=== PATIENT | female | born 1980 | race Caucasian/White ===

== ENCOUNTER → 2017-08-03 11:58 | Outpatient (CLI) | payer MEDICAID, SELFPAY ==
[2017-08-03 13:02] LABS: Hemoglobin A1c 12.3 % (4.2-6.3)
[2017-08-03 13:23] LABS: AST(SGOT) 12 U/L (15-37); Alanine Aminotransfer ALT/SGPT 25 U/L (13-56); Albumin, Serum 3.9 g/dL (3.2-5.0); Alkaline Phosphatase 139 U/L (45-117); Anion Gap 10 (5-15); BUN 7 mg/dL (7-18); BUN/Creat Ratio 13.7 RATIO (10-20); Calcium,Total 8.7 mg/dL (8.5-10.1); Chloride 98 mmol/L (98-107); Creatinine, Serum 0.51 mg/dL (0.55-1.02); EST Glomerular Filtration Rate 142 mL/min (>60); Est Glom Filt Rate - Afr Amer 172 mL/min (>60); Follicle Stimulating Hormone 4.7 mIU/mL; Glucose 304 mg/dL (74-106); Luteinizing Hormone 8.6 mIU/mL; Potassium 3.9 mmol/L (3.5-5.1); Protein, Total 7.9 g/dL (6.4-8.2); Sodium Level 132 mmol/L (136-145); Thyroid Stim Hormone (TSH) 0.77 uIU/mL (0.358-3.74)
[2017-08-03 13:24] LABS: Microalbumin,Random Urine 26.4 mg/L (NO RANGE EST.); Microalbumin:Creatinine Ratio 174.8 mg/g CRE (<30 mg/g CRE)
== END ==
PROVIDERS: Visit Provider Nurse Practitioner
DX: E11.9 Type 2 diabetes mellitus without complications (principal)
CPT/HCPCS: 36415; 80053; 82043; 82570; 83001; 83002; 83036; 84403; 84443

== ENCOUNTER → 2018-01-27 15:23 | Outpatient (CLI) | payer MEDICAID, SELFPAY ==
[2018-02-03 08:55] LABS: HPV HC, High Risk Negative (Negative)
[2018-02-03 09:06] LABS: HPV Reflexed? YES, CHARGE PATIENT
== END ==
PROVIDERS: Visit Provider Obstetrics & Gynecology
DX: Z12.4 Encounter for screening for malignant neoplasm of cervix (principal)
CPT/HCPCS: 87624; 88175; G0145

== ENCOUNTER → 2022-11-11 | Outpatient (CLI) | payer MEDICAID, SELFPAY ==
[2022-11-11 16:13] LABS: Anion Gap 7 (5-15); BUN 30 mg/dL (7-18); BUN/Creat Ratio 39.1 RATIO (10-20); Calcium,Total 9.4 mg/dL (8.5-10.1); Chloride 105 mmol/L (98-107); Creatinine, Serum 0.77 mg/dL (0.55-1.02); EST Glomerular Filtration Rate 87 mL/min (>60); Est Glom Filt Rate - Afr Amer 105 mL/min (>60); Glucose 196 mg/dL (74-106); Magnesium 2.1 mg/dL (1.6-2.6); Potassium 4.9 mmol/L (3.5-5.1); Sodium Level 138 mmol/L (136-145)
[2022-11-11 16:16] LABS: Vitamin D,25 Hydroxy 28.5 ng/mL
[2022-11-11 16:35] LABS: Microalbumin,Random Urine 69.8 mg/L (NO RANGE EST.); Microalbumin:Creatinine Ratio 34.7 mg/g CRE (<30 mg/g CRE)
== END | disposition home or self-care (01) ==
LOC: BIMLAB 13:50
PROVIDERS: PCP Internal Medicine; Referring Provider Internal Medicine; Visit Provider Internal Medicine
DX: E11.65 Type 2 diabetes mellitus with hyperglycemia (principal); E55.9 Vitamin D deficiency, unspecified; I10 Essential (primary) hypertension
CPT/HCPCS: 36415; 80048; 82043; 82306; 82570; 83735

== ENCOUNTER → 2023-03-15 | Outpatient (CLI) | payer MEDICAID, SELFPAY ==
[2023-03-15 15:43] LABS: Absolute Lymphocyte Count 2.25 X10^3/uL (0.83-4.51); Absolute Neutrophil Count 8.5 X10^3/uL (2.0-7.7); Basophil# 0.08 X10^3/uL; Basophil% 0.7 % (0-1); Eosinophil# 0.45 X10^3/uL; Eosinophils% 3.7 % (0-5); Hematocrit 46.7 % (37-47); Lymphocyte # 2.25 X10^3/ul (0.83-4.51); Lymphocyte % 18.6 % (19-41); Mean Corp Hgb Conc 32.1 g/dL (32-36); Mean Corpuscular Hgb 29.5 pg (27.0-32.0); Mean Corpuscular Volume 91.7 fL (81-99); Mean Platelet Vol. 9.7 fl (6.2-12.0); Monocyte# 0.71 X10^3/uL; Monocyte% 5.9 % (0-10); NRBC Flagged by Analyzer 0 % (0-5); Neutrophil # 8.54 X10^3/uL (2.7-7.7); Neutrophil % 70.4 % (47-70); Platelet Count 532 K/mm3 (150-450); RBC Distribution Width CV 13.4 % (11.6-14.6); RBC Distribution Width SD 45.2 fl (35.1-43.9); Red Blood Count 5.09 M/mm3 (4.2-5.4); White Blood Count 12.1 K/mm3 (4.4-11.0)
[2023-03-15 16:09] LABS: ALB/GLOB Ratio 0.8 RATIO (0.9-2.4); AST(SGOT) 9 U/L (15-37); Alanine Aminotransfer ALT/SGPT 18 U/L (13-56); Albumin, Serum 3.6 g/dL (3.2-5.0); Alkaline Phosphatase 91 U/L (45-117); Anion Gap 10 (5-15); BUN 22 mg/dL (7-18); BUN/Creat Ratio 27.3 RATIO (10-20); Calcium,Total 9.1 mg/dL (8.5-10.1); Chloride 109 mmol/L (98-107); EST Glomerular Filtration Rate 82 mL/min (>60); Est Glom Filt Rate - Afr Amer 99 mL/min (>60); Globulin 4.4 g/dL (2.2-4.2); Glucose 239 mg/dL (74-106); Potassium 4.3 mmol/L (3.5-5.1); Sodium Level 138 mmol/L (136-145)
== END | disposition home or self-care (01) ==
LOC: BIMLAB 14:16
PROVIDERS: PCP Internal Medicine; Visit Provider Internal Medicine
DX: R29.898 Other symptoms and signs involving the musculoskeletal system (principal); E11.44 Type 2 diabetes mellitus with diabetic amyotrophy
CPT/HCPCS: 36415; 80053; 83735; 85025

== ENCOUNTER → 2023-03-23 | Outpatient (CLI) | payer MEDICAID, SELFPAY ==
--- NOTE | 2023-03-23 13:35 | BI_ITS ---
MAMMOGRAPHY - BILATERAL SCREENING REASON FOR EXAM: Female, 43 years old. Routine annual screening examination. PERTINENT HISTORY: Grandmother with breast cancer. Aunts with breast cancer. TECHNIQUE: Digital bilateral breast mulu (3D mammographic acquisition) in the CC and MLO projections. 2-D mediolateral oblique (MLO) and craniocaudad (CC) views of both breasts were obtained. CAD: Full Field Digital Mammography with Computer Added Detection was performed. COMPARISON: Comparison is made with prior abdomen examination dated October 23, 2020. FINDINGS: Breast Composition: There are scattered areas of fibroglandular density. There are no dominant masses or suspicious calcifications. Stable benign-appearing bilateral axillary lymph nodes. No other significant abnormalities are identified. There has been no significant change since the prior study. BI/SCRN MAMM (CAD)W/MULU BILAT IMPRESSION: Stable bilateral screening mammogram. Yearly follow-up mammogram recommended. (A) ASSESSMENT CATEGORY: BIRADS Category 2: Benign. A letter regarding these results will be sent to the patient by the facility within 30 days. Approximately 10% of breast cancers are not detected by mammography. A normal mammogram should not delay biopsy of a clinically suspicious abnormality. [id number] Electronically Signed: Gregory Grimes MD at 14:38 EDT ,
== END | disposition home or self-care (01) ==
LOC: OPBI 13:34
PROVIDERS: PCP Internal Medicine; Referring Provider Internal Medicine; Visit Provider Internal Medicine
DX: Z12.31 Encounter for screening mammogram for malignant neoplasm of breast (principal)
CPT/HCPCS: 77063; 77067

== ENCOUNTER → 2023-04-01 | Outpatient (CLI) | payer MEDICAID, SELFPAY ==
--- NOTE | 2023-04-01 08:02 | ART_ITS ---
Reason For Study: PVD Procedure A bilateral lower extremity continuous wave Doppler with analog waveform analysis,segmental pressures,and ankle brachial indexes without exercise. Left Segmental Pressures Left brachial= 139mmHg. Left thigh = 111mmHg. Left calf = 99mmHg. Left posterior tibial artery = 94mmHg. Left dorsalis pedis artery = 99mmHg. Left digit = 92 mmHg. The left posterior tibial artery waveforms are biphasic. The left dorsalis pedis waveforms are biphasic. Right Segmental Pressures Right brachial= 136mmHg. Right thigh = 89mmHg. Right calf = 90mmHg. Right posterior tibial artery = 91mmHg. Right dorsalis pedis artery = 90mmHg. Right digit = 88 mmHg. The right posterior tibial artery waveforms are biphasic. The right dorsalis pedis waveforms are biphasic. Indices The right ankle brachial index by the posterior tibial artery is 0.68. The right ankle brachial index by the dorsalis pedis is 0.71. The right digital-brachial index is 0.66. The left ankle brachial index by the posterior tibial artery is 0.65. The left ankle brachial index by the dorsalis pedis is 0.65. The left digital-brachial index is 0.63. VL/Lower Ext Art Exam w/o Exercis Interpretation Summary Right MARTA 0.71, moderate arterial insufficiency. Doppler/PVR waveforms and segm ental pressures reveal [id number]-[id number] femoral disease Left MARTA 0.65, moderate arterial insufficiency. Doppler/PVR waveforms and segme ntal pressures reveal [id number]-hyeuq-vwdwenfk femoral disease. Ordering Physician: Kassy Lauren Referring Physician: Zo Bell Performed By: Cooper Mclaughlin RVAnuradha
== END | disposition home or self-care (01) ==
LOC: CVS 08:01
PROVIDERS: PCP Internal Medicine; Referring Provider Physician Assistant; Visit Provider Physician Assistant
DX: I73.9 Peripheral vascular disease, unspecified (principal)
CPT/HCPCS: 93923

== ENCOUNTER → 2023-04-19 | Outpatient (CLI) | payer MEDICAID, SELFPAY ==
--- NOTE | 2023-04-19 12:07 | CT_ITS ---
EXAM: CT ANGIOGRAPHY ABDOMEN AND PELVIS WITH RUNOFF TO THE LOWER EXTREMITIES WITH INTRAVENOUS CONTRAST CLINICAL INDICATION: history of LLE revascularization, abnormal ABIs TECHNIQUE: Helically acquired angiography images were obtained of the abdomen, pelvis and lower extremities with intravenous contrast using CTA runoff protocol. This CT exam was performed using one or more of the following dose reduction techniques: automated exposure control, adjustment of the mA and/or kV according to patient size, and/or use of iterative reconstruction technique. MIP reconstructed images were created and reviewed. CONTRAST: 100 cc of Isovue-370 IV. RADIATION DOSE: CTDIvol = 8.94 mGy, DLP = 1481.55 mGy-cm COMPARISON: No relevant prior studies available. FINDINGS: VASCULATURE: AORTA: Diffuse atherosclerotic calcification of the left common artery with less than 50% diameter stenosis. Diffuse atherosclerotic calcifications of the aorta without stenosis or aneurysm. No dissection. CELIAC TRUNK AND MESENTERIC ARTERIES: No acute findings. No occlusion or significant stenosis. No dissection. RENAL ARTERIES: No acute findings. No occlusion or significant stenosis. No dissection. RIGHT ILIAC ARTERIES: Moderate diffuse atherosclerotic calcifications of the right external iliac artery with less than 50% diameter stenosis. Diffuse atherosclerotic calcification of the right common iliac artery without hemodynamically significant stenosis. RIGHT FEMORAL/POPLITEAL ARTERIES: Occluded right superficial femoral artery. Reconstitution of a stenotic right popliteal artery through collaterals. RIGHT CALF/FOOT ARTERIES: The proximal right calf arteries appear normal and the distal right calf arteries are not visualized probably due to slow flow. LEFT ILIAC ARTERIES: There is a stent that originates in the distal left common iliac artery. Within the stent in the proximal left external iliac artery there is a focal short segment stenosis greater than 50% in diameter. LEFT FEMORAL/POPLITEAL ARTERIES: Occlusion of the left superficial femoral artery. Reconstitution of the left popliteal artery through collaterals. LEFT CALF/FOOT ARTERIES: The proximal left calf arteries appear normal in the distal calf arteries are not visualized probably due to slow flow. LOWER THORAX: Unremarkable. Lung bases are clear. No cardiomegaly. No significant pericardial effusion. ABDOMEN: LIVER: Unremarkable. Homogeneous. No focal mass. GALLBLADDER AND BILE DUCTS: Unremarkable. No calcified gallstones. No gallbladder distention or wall edema. No intra- or extrahepatic biliary ductal dilation. PANCREAS: Unremarkable. No focal cystic or solid mass. SPLEEN: Unremarkable. Normal size without focal cystic or solid mass. ADRENALS: Unremarkable. No nodules. KIDNEYS AND URETERS: Unremarkable. Normal renal size and position. No hydronephrosis. STOMACH AND BOWEL: Unremarkable. No stomach or bowel distention. No focal inflammatory change. PELVIS: APPENDIX: No evidence of acute appendicitis. BLADDER: Unremarkable. REPRODUCTIVE: Unremarkable as visualized. No mass. ABDOMEN, PELVIS and LOWER EXTREMITIES: INTRAPERITONEAL SPACE: Unremarkable. No ascites or other fluid collection. No free air. BONES/JOINTS: Unremarkable. No suspicious lytic or blastic abnormality. SOFT TISSUES: Unremarkable. No discrete abdominal or pelvic wall hernia. LYMPH NODES: Unremarkable. No enlarged lymph nodes. CT/CTA Abd w/Runoff W/WO Contrast IMPRESSION: 1. Occlusion of the right superficial femoral artery. 2. Occlusion of the left superficial femoral artery. 3. Diffuse atherosclerotic calcification of the right common iliac artery without hemodynamically significant stenosis. 4. There is a stent that originates in the distal left common iliac artery. Within the stent in the proximal left external iliac artery there is a focal short segment stenosis greater than 50% in diameter. 5. Moderate diffuse atherosclerotic calcifications of the right external iliac artery with less than 50% diameter stenosis. 6. Diffuse atherosclerotic calcification of the left common artery with less than 50% diameter stenosis. 7. Reconstitution of a stenotic right popliteal artery through collaterals. 8. Reconstitution of the left popliteal artery through collaterals. 9. The proximal right calf arteries appear normal and the distal right calf arteries are not visualized probably due to slow flow. 10. The proximal left calf arteries appear normal in the distal calf arteries are not visualized probably due to slow flow. Electronically Signed: Tristian Wild MD at 6:57 EST ,
[2023-04-19 12:36] LABS: EGFR FINGERSTICK > 60.0000 mL/min (>60)
== END | disposition home or self-care (01) ==
LOC: CT 12:06
PROVIDERS: PCP Internal Medicine; Referring Provider Physician Assistant; Visit Provider Physician Assistant
DX: I73.9 Peripheral vascular disease, unspecified (principal)
CPT/HCPCS: 75635; Q9967

== ENCOUNTER → 2023-06-07 | Outpatient (CLI) | payer MEDICAID, SELFPAY ==
--- NOTE | 2023-06-07 14:02 | VDLE_ITS ---
Reason For Study: surgical planning RIGHT LEFT GSV prox thigh .31 x .32 cm. GSV prox thigh .42 x .46 cm. GSV mid thigh .21 x .22 cm. GSV mid thigh .4 x .46 cm. GSV dist thigh .17 x .17 cm. GSV dist thigh .32 x .34 cm. GSV knee .1 x .11 cm GSV knee .26 x .28 cm GSV below knee .09 x .11 cm. GSV below knee .21 x .26 cm. GSV mid calf .12 x .14 cm. GSV mid calf .12 x .13 cm. GSV ankle .16 x .18 cm GSV ankle . .24 x .23 cm SSV prox calf .11 x .13 cm. SSV prox calf .16 x .17 cm. SSV mid calf .13 x .17 cm. SSV mid calf .12 x .14 cm. SSV ankle .2 x .24 cm. SSV ankle .14 x .17 cm. Procedure Exam performed in department. The exam was diagnostic. VL/Saphenous Vein Mapping, Bilat Interpretation Summary Right great saphenous vein patent with measurements above. Left great saphenous vein patent with measurements above. Right small saphenous vein patent with measurements above. Left small saphenous vein patent with measurements above. Ordering Physician: Kassy Lauren Performed By: Domingo Little RVT
== END | disposition home or self-care (01) ==
LOC: CVS 14:01
PROVIDERS: PCP Internal Medicine; Referring Provider Physician Assistant; Visit Provider Physician Assistant
DX: I73.9 Peripheral vascular disease, unspecified (principal)
CPT/HCPCS: 93970

== ENCOUNTER 2023-06-09 06:46 | Day surgery (SDC) | payer MEDICAID, SELFPAY ==
[2023-06-08 15:09] VITALS: BMI 29.7
[2023-06-09 07:02] LABS: Hematocrit 45.9 % (37-47); Hemoglobin 14.9 g/dL (12.0-15.0); Mean Corp Hgb Conc 32.5 g/dL (32-36); Mean Corpuscular Hgb 29.1 pg (27.0-32.0); Mean Corpuscular Volume 89.6 fL (81-99); Mean Platelet Vol. 9.1 fl (6.2-12.0); Platelet Count 511 K/mm3 (150-450); RBC Distribution Width CV 13.1 % (11.6-14.6); RBC Distribution Width SD 42.8 fl (35.1-43.9); Red Blood Count 5.12 M/mm3 (4.2-5.4); White Blood Count 13.3 K/mm3 (4.4-11.0)
[2023-06-09 07:12] LABS: Internal QC Validated? YES +Cl - CLEAR BKGD; Pregnancy, Serum, hCG Quali. NEGATIVE Negative; Record Kit Lot#, Serum Preg. HCG0000667200
[2023-06-09 07:19] LABS: Anion Gap 7 (5-15); BUN 11 mg/dL (7-18); BUN/Creat Ratio 16.6 RATIO (10-20); Calcium,Total 9.4 mg/dL (8.5-10.1); Chloride 103 mmol/L (98-107); Creatinine, Serum 0.66 mg/dL (0.55-1.02); EST Glomerular Filtration Rate 103 mL/min (>60); Est Glom Filt Rate - Afr Amer 124 mL/min (>60); Estimated Creatinine Clearance 139.31 ml/min; Glucose 218 mg/dL (74-106); Potassium 4.2 mmol/L (3.5-5.1); Sodium Level 136 mmol/L (136-145)
--- NOTE | 2023-06-09 08:15 | HP.PCM_ITS ---
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 She had a CTA that revealed in sten t stenosis of left common and external iliac stents, right external iliac stenosis, bilateral SFA occlusions. She presents for angiogram with planned treated of in stent stenosis to preserve patency as well as effort to treat SFA/popliteal disease on the left. [facility] Medical History Diabetes type 2, controlled High cholesterol Hives HTN (hypertension) Neuropathy PTSD (post-traumatic stress disorder) Recurrent infections Home Medications blood sugar diagnostic (FreeStyle Lite Strips) #200 ea 09/15/17 [Rx Last Taken Unknown] insulin syringe,safetyneedle 1 mL 31 gauge x 5/16 (Easy Touch FlipLock Insulin) #100 ea 09/15/17 [Rx Last Taken Unknown] pen needle, diabetic 31 gauge x 5/16 (Comfort EZ Pen Holden) #30 ea 07/20/18 [Rx Last Taken Unknown] methocarbamol 500 mg tablet 500 mg PO ONCE 02/25/22 [History Last Taken Unknown] metformin 500 mg tablet,extended release 24 hr 1,000 mg (2 x 500 mg) PO BID #120 tabs 09/22/22 [Rx Last Taken Unknown] insulin detemir U-100 100 unit/mL (3 mL) subcutaneous pen (Levemir FlexTouch U- 100 Insulin) 40 unit subcut DAILY Diabetes E11.65 11/11/22 [History Last Taken Unknown] insulin regular human 100 unit/mL injection solution (Humulin R Regular U-100 Insulin) See Rx Instructions .Route .COMPLEX #10 mL 01/13/23 [Rx Last Taken Unknown] lactulose 10 gram/15 mL oral solution 15 ml PO ONCE PRN constipation #237 mL 03/15/23 [Rx Last Taken Unknown] liraglutide 0.6 mg/0.1 mL (18 mg/3 mL) subcutaneous pen injector (Victoza 2-Chavo) 0.6 mg subcut DAILY 03/15/23 [History Last Taken Unknown] losartan 25 mg tablet 25 mg PO QAM #90 tabs 03/15/23 [Rx Last Taken 06/09/23] melatonin 3 mg tablet 3 mg PO HS PRN sleep #90 tabs 03/15/23 [Rx Last Taken Unknown] pravastatin 20 mg tablet 20 mg PO QHS #90 tabs 03/15/23 [Rx Last Taken Unknown] glipizide 10 mg tablet 10 mg PO DAILY 03/29/23 [History Last Taken Unknown] duloxetine 30 mg capsule,delayed release See Rx Instructions .Route .COMPLEX #30 caps 04/06/23 [Rx Last Taken Unknown] duloxetine 60 mg capsule,delayed release 60 mg PO QAM #30 caps 04/06/23 [Rx Last Taken Unknown] gabapentin 300 mg capsule See Rx Instructions PO TID #150 caps 04/11/23 [Rx Last Taken Unknown] aspirin 81 mg tablet,delayed release 81 mg PO QDAY #30 tabs 06/02/23 [Rx Last [facility] Unknown] Allergy/AdvReac Type Severity Reaction Status Date / Time latex Allergy Itching Verified 05/09/23 13:40 empagliflozin AdvReac Severe PT UNSURE Verified 05/09/23 13:40 [From Jardiance] OF REACTION lisinopril AdvReac Severe cough Verified 05/09/23 13:40 cilostazol [From Pletal] AdvReac Intermediate PT UNSURE Verified 05/09/23 13:40 OF REACTION Mqwyoqu-XDK-VtJ Reductase AdvReac Intermediate Other Verified 05/09/23 13:40 Inhibitor [Vymvlxz-Erk-Hiv Reductase Inhibitor] acetaminophen [From Vicodin] AdvReac Other Verified 05/09/23 13:40 hydrocodone [From Vicodin] AdvReac Other Verified 05/09/23 13:40 Family History Mother Diabetes Brain aneurysm Father Hypertension Sclerosing cholangitis Grandmother Diabetes Ovarian cancer Grandfather Diabetes Aortic aneurysm Grandmother Diabetes Grandfather Diabetes Aunt Breast cancer Surgical History H/O: History of incision and drainage History of surgical procedure S/P removal of left ovary Tubal ligation status uterine ablation uterine polyp removal Social History household members: children current occupational status: disabled Smoking Status: Former smoker quit date: 12/22/19 pack-years: 28 Tobacco: How many years used: 22 Electronic Cigarette Use: with nicotine second hand exposure: Yes alcohol intake: current alcohol intake frequency: holidays/special occasions o nly substance use type: does not use do you feel safe at home: Yes ROS Constitutional Constitutional: Denies chills, fever(s), frequent falls, lethargy or weakness Eyes Eyes: Denies blind spots, change in vision or loss of vision ENT HEENT: Denies bleeding gums, hoarseness or sore throat Cardiovascular Cardiovascular: Denies abdominal pain, bluish discoloration of hand/feet, chest pain with activity, claudication, cold extremities, cyanosis, dyspnea on exertion, erythema on extremities, irregular heart rhythm, leg edema, leg ulcers or numbness in extremities Respiratory/Chest Respiratory/Chest: Denies cough, excessive phlegm production, shortness of breath at rest, shortness of breath with exertion or wheezing Gastrointestinal Gastrointestinal: Denies anorexia, change in stool character, constipation, diarrhea, melena or rectal bleeding Genitourinary Genitourinary: Denies dysuria or hematuria Musculoskeletal Musculoskeletal: Denies abnormal gait Integumentary Integumentary: Reports other Details: ; Denies erythema, non-healing lesions or wounds Neurologic Neurologic: Denies abnormal speech, headache(s), loss of vision, numbness, paresthesias or sensory deficit Hematologic/Lymphatic Hematologic/Lymphatic: Denies easy bleeding, easy bruising or lymphadenopathy Vital Signs Vital Signs Vital Signs: Weight Weight: 213 lb Body Mass Index (BMI) 29.7 Physical Exam Const alert, oriented x3, no apparent distress and healthy appearing General Appearance: cooperative; Negative for combative or lethargic Orientation / Consciousness: awake Exam Limitations: no limitations HEENT Head and Scalp: normocephalic and atraumatic Eyes EOMs intact bilaterally General Eye: normal appearance of both eyes Neck full ROM, no lymphadenopathy, thyroid normal and No no carotid bruits General: trachea midline; Negative for lymphadenopathy Thyroid: thyroid normal Lymph Lymphatic: Negative for no lymphadenopathy noted Resp normal respiratory effort and no use of accessory muscles Effort and Inspection: Negative for labored, stridor or audible wheezes Cardio regular rate and regular rhythm Back/Spine Cervical Spine: cervical ROM normal Extremity full ROM, normal capillary refill and no clubbing, cyanosis or edema Skin no rashes or lesions noted and no wounds Neuro oriented x3, CN's II-XII intact bilaterally and no sensory deficits noted Psych thought process normal, cooperative, affect normal, speech normal and activity/motor behavior normal Results Lab / Micro Data 06/09/23 06:51 06/09/23 06:51 Labs: Laboratory Results - last 24 hr 06/09/23 06:51: WBC 13.3 H, RBC 5.12, Hgb 14.9, Hct 45.9, MCV 89.6, MCH 29.1, MCHC 32.5, RDW Std Deviation 42.8, RDW Coeff of Demian 13.1, Plt Count 511 H, MPV 9.1, Sodium 136, Potassium 4.2, Chloride 103, Carbon Dioxide 26.0, Anion Gap 7, BUN 11, Creatinine 0.66, Estim Creat Clear Calc 139.31, Est GFR (MDRD) Af Amer 124, Est GFR (MDRD) Non-Af 103, BUN/Creatinine Ratio 16.6, Glucose 218 H, Calcium 9.4, Serum , Qual NEGATIVE Assessment & Plan Assessment/Plan (1) Claudication in peripheral vascular disease: PLAN: -angio possible intervention
--- NOTE | 2023-06-09 13:18 | OP.PCM_ITS ---
Report of Operation Date of Procedure: 06/09/23 Pre-Operative Diagnosis: atherosclerosis with claudication, left lower extremity Post-Operative Diagnosis: same Surgery/Procedure Performed:: aortogram, left lower extremity runoff IVUS left common iliac, external iliac, common femoral, sfa/popliteal, TP trunk atherectomy/stent left popliteal atherectomy/DCB left SFA atherectomy/angioplasty left common femoral angioplasty left external iliac Surgeon: Johny Avery Estimated Blood Loss (mL): 20 Description of Procedure: HPI: Patient is a 39-year-old female with atherosclerosis with claudication left lower extremity. She previously underwent left common femoral endarterectomy and iliac stenting approximately 4 years prior for nonhealing diabetic foot wound. Noninvasive vascular studies revealed moderate arterial insufficiency. CT angiography revealed in-stent stenosis of the left external iliac artery stent as well as in-stent stenosis of the the more distal portion of the stent which technically was within the common femoral artery. This also revealed total occlusion of the SFA with reconstitution of the popliteal artery. She presents now for angiography with possible intervention. Description of procedure: Upon obtaining form consent and verification correct patient procedure site patient taken to the [facility] where she was positioned prepped and draped in usual fashion. Time was performed conscious sedation administered Versed and fentanyl. Skin overlying the right common femoral artery was anesthetized 1% lidocaine and the vessel accessed under ultrasound gu idance with micropuncture needle wire. This then exchanged for micropuncture sheath through which injection iliofemoral angiogram was performed revealing satisfactory position no extravasation or dissection. Through the micropuncture sheath a starter J-wire was advanced and the micropuncture sheath exchanged out for a 5 Panamanian sheath. Through the 5 Panamanian sheath a Bentson wire was advanced into the abdominal aorta and Omni Flush catheter advanced into position subtraction aortogram pelvic angiogram was performed. We then navigated into the contralateral iliac system advancing our wire catheter into the distal external iliac artery. From this position we performed sequential subtraction angiography left lower extremity which confirmed flush occlusion of the SFA origin with reconstitution of the above-knee popliteal which was a diseased vessel with ultimately normal caliber appearing P3 segment popliteal. This also showed two-vessel runoff to the foot via the anterior tibial posterior tibial no significant atherosclerosis. The pelvic angiogram portion also confirmed high- grade stenosis greater than 80% of the external iliac artery as well as of the common femoral artery and the stented portion. Cowen these were amenable to endovascular efforts so the patient was in heparinized allowed to circulate for 3 minutes. Through the Omni Flush catheter a Amplatz wire was advanced and the Omni Flush cath and the 5 Panamanian sheath withdrawn. Next a [employer] 6 Panamanian sheath was advanced over the wire and positioned in the mid external iliac artery. From this position using a command 18 wire and quick cross catheter we were able to engage successfully the SFA origin and initiate crossing into the true lumen. In the distal SFA proximal popliteal we encountered more robust p laque and had portions where we went to subintimal. We were able to reenter into true lumen beyond this and ultimately reenter into the patent lumen of the P1 segment of the popliteal. The wire was then advanced ultimately into the P3 segment of the popliteal and catheter advanced. Subtraction angiography via the catheter confirmed position within the true lumen. The command 18 wire then readvanced to the catheter and the catheter withdrawn. Intravascular sound probe was then advanced over the wire and attempted to cross the lesion to image both the segment intended to treat as well as the distal vessel. Unfortunately the ultrasound probe would not cross the more calcified section of the lesion where we had been subintimal. Recorded pullback was performed of the proximal popliteal, SFA, common femoral, external iliac artery, common iliac artery. This was then withdrawn and a 2 mm Saber balloon advanced over the wire and inflated to nominal for multiple inflations across the segment of the head the most resistance. After the angioplasty was performed to the intravascular ultrasound probe was then readvanced and successfully crossed into the distal popliteal and ultimately to the TP trunk. Recorded pullback of the distal segment was then performed to obtain measurements and tim the extent of the plaque. We were in fact in a subintimal plane in the proximal popliteal so the plan was for rotational atherectomy of the SFA down to the segment where we crossed into the false lumen. From this point on we would plan for angioplasty and/or stenting alone without atherectomy. Quick cross catheter then advanced over the wire and the 018 wire exchanged for the Amplatz wire. The 6 Panamanian sheath was then exchanged for 7 Panamanian sheath advanced into the mid external neck artery. The cath was then readvanced and the Amplatz wire exchanged for an 014 wire. 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 This was then advanced over the wire and engaged across the common femoral in-stent restenosis as well as across the entirety of the SFA and into the proximal popliteal. A total of 2 passes were performed and the device was then withdrawn. Next the entirety of the length of the treated segment was treated with balloon angioplasty 4 mm Lakshmi noncompliant balloon for a length of approximately 300 mm. Repeat angiography revealed overall satisfactory lesion response throughout the entirety of the SFA, with some luminal irregularity in the proximal portion of the popliteal in the area where we are subintimal. There also was more obvious luminal irregularity and stenosis of the distal P1 segment of the popliteal which not as obvious prior to fixing the more proximal segment. Intravascular shunt probe was then advanced over the wire and recorded pullback of the tibioperoneal trunk, popliteal, SFA, common femoral was performed. This confirmed overall satisfactory vessel response in the SFA and that the proximal popliteal had some segments of residual stenosis in the area where there was more dense plaque and our subintimal plane was created. Is felt that this segment was best treated with stent so a 6 x 120 [employer] Gianna self- expanding paclitaxel stent was brought to field prep for textile scrap salvager instructions. The more proximal segment of the treated vessel was size appropriate for a 5 mm drug-coated angioplasty balloon so a 5 x 220 [employer] paclitaxel coated balloon was then advanced in the position and inflated nominal with the proximal balloon into the SFA origin and distally into the midportion of the stent. After 2 minutes inflation this was then deflated and advanced further to cover the entirety of the stented segment and then inflated nominal and then deflated withdrawn. Repeat angiography revealed satisfactory response of the SFA segment as well as satisfactory stent expansion. Again there was more obvious distal popliteal stenosis in the distal P1 segment so the 4 mm Lakshmi balloon was then readvanced and then inflated to nominal for 3 minutes then deflated withdrawn. There is satisfactory resolution of the stenosis on repeat angiography so a 4 mm x 120 Bard Luton[employer] drug-coated angioplasty balloon advanced in position inflated for 2 minutes then deflated withdrawn. Repeat angiography revealed satisfactory vessel response with a very small area of the either atypical collateral branch filling or a small pinpoint extravasation via a sidebranch. This was not very large is felt will resolve with reversal of anticoagulation so nothing further was done. The 7 Panamanian sheath was then pulled back the proximal common iliac artery and repeat imaging of the external iliac artery was performed. A Remy AngioSculpt 7 x 40 was then advanced in position and inflated to nominal for multiple inflations across each of the 2 tandem stenotic lesions. Repeat angiography revealed satisfactory resolution of the stenosis of both with brisk contrast transit and no extravasation or dissection. There was brisk contrast filling and emptying into the performed in the proximal SFA. A final completion angiography of the distal popliteal and trifurcation was performed which revealed preserved popliteal trifurcation and no further visualization of that segment of either extravasation or branch filling. The long 7 Panamanian sheath exchanged over a short 7 Panamanian sheath and a minx closure device deployed followed by 3 minutes of manual pressure. Patient was taken recovery anticipated discharged home.
[2023-06-09 19:53] LABS: ACT Activated Clotting Time 255 sec (74-137)
[2023-06-09 19:53] LABS: ACT Activated Clotting Time 304 sec (74-137)
[2023-06-09 19:55] LABS: ACT Activated Clotting Time 244 sec (74-137)
[2023-06-09 19:56] LABS: ACT Activated Clotting Time 244 sec (74-137)
[2023-06-09 19:58] LABS: ACT Activated Clotting Time 244 sec (74-137)
[2023-06-09 19:58] LABS: ACT Activated Clotting Time 239 sec (74-137)
== END 2023-06-09 15:35 | disposition home or self-care (01) ==
LOC: CLSP 06:47
PROVIDERS: PCP Internal Medicine; Visit Provider Surgery Trauma Surgery
DX: E11.51 Type 2 diabetes mellitus with diabetic peripheral angiopathy without gangrene (principal); E11.40 Type 2 diabetes mellitus with diabetic neuropathy, unspecified; I70.212 Atherosclerosis of native arteries of extremities with intermittent claudication, left leg; Z79.4 Long term (current) use of insulin; E78.00 Pure hypercholesterolemia, unspecified; I10 Essential (primary) hypertension; Z79.82 Long term (current) use of aspirin; Z79.84 Long term (current) use of oral hypoglycemic drugs; Z79.899 Other long term (current) drug therapy; Z87.891 Personal history of nicotine dependence; Z79.01 Long term (current) use of anticoagulants
CPT/HCPCS: 36246; 36200; 36245; 36415; 37220; 37225; 37227; 37252; 37253; 75625; 75710; 76937; 80048; 84703; 85027; 85347; 99152; 99153; C1724; C1725; C1760; C1769; C1874; C1887; C1894; C2623; J7030; J7040; Q9967

== ENCOUNTER → 2023-07-19 | Outpatient (CLI) | payer MEDICAID, SELFPAY ==
--- NOTE | 2023-07-19 14:04 | ART_ITS ---
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 Left Segmental Pressures Left brachial= 127mmHg. Left posterior tibial artery = 96mmHg. Left dorsalis pedis artery = 127mmHg. Left digit = 125 mmHg. The left dorsalis pedis waveforms are triphasic. The left posterior tibial artery waveforms are triphasic. Right Segmental Pressures Right brachial= 122mmHg. Right posterior tibial artery = 66mmHg. Right dorsalis pedis artery = 81mmHg. Right digit = 31 mmHg. The right dorsalis pedis waveforms are monophasic. The right posterior tibial artery waveforms are monophasic. Indices The right ankle brachial index by the dorsalis pedis is 0.64. The right ankle brachial index by the posterior tibial artery is 0.52. The right digital-brachial index is 0.24. The left ankle brachial index by the dorsalis pedis is 1.00. The left ankle brachial index by the posterior tibial artery is 0.76. The left digital-brachial index is 0.98. VL/Ankle Brachial Index Interpretation Summary Right MARTA 0.64, moderate arterial insufficiency. Doppler/PVR waveforms of the r ight ankle moderately diminished at rest. Left MARTA 1, normal. TBI and Doppler/PVR waveforms of the left ankle normal at r est. Ordering Physician: Kassy Lauren Referring Physician: Zo Bell Performed By: Emperatriz Ray RVT
--- NOTE | 2023-07-19 14:04 | ADUL_ITS ---
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 ENTERPRISE RESOURCE PLANNING CONSULTANT prox, distal stent, 194.1 cm/sec. ENTERPRISE RESOURCE PLANNING CONSULTANT mid, distal to stent, 105.8 cm/sec. SFA prox, 76.5 cm/sec. SFA prox/mid, prox to stent, 47.5 cm/sec. SFA mid, prox stent, 42.8 cm/sec. SFA mid/distal, mid stent, 49 cm/sec. SFA distal, distal stent, 29.8 cm/sec. SFA distal, distal to stent, 62.9 cm/sec. Profunda Femoral Artery = 83.8 cm./sec. Popliteal Artery, mid = 42 cm./sec. Post. Tibial Artery, prox = 49.7 cm./sec. Post Tibial Artery, mid = 53 cm./sec. Post Tibial Artery, dist. = 36.5 cm./sec. Peroneal Artery, prox = 0 cm./sec. Peroneal Artery, mid = 26.5 cm./sec. Peroneal Artery,dist. = 17.9 cm./sec. Ant.Tibial Artery, prox = 31.1 cm./sec. Ant Tibial Artery, mid = 29.6 cm./sec. Ant. Tibial Artery, distal = 35.7 cm./sec. Procedure Exam performed in department. /US Art Duplex Unilat Lower Ext Interpretation Summary Left lower extremity arteries patent with normal velocities and waveforms throu ghout. Proximal peroneal artery not visualized. Ordering Physician: Kassy Lauren Referring Physician: Zo Bell Performed By: Emperatriz Ray RVT
== END | disposition home or self-care (01) ==
LOC: CVS 14:03
PROVIDERS: PCP Internal Medicine; Referring Provider Physician Assistant; Visit Provider Physician Assistant
DX: I73.9 Peripheral vascular disease, unspecified (principal); E11.65 Type 2 diabetes mellitus with hyperglycemia
CPT/HCPCS: 36415; 80053; 83735; 85025; 93922; 93926

== ENCOUNTER → 2023-07-19 | Outpatient (CLI) | payer MEDICAID, SELFPAY ==
[2023-07-19 15:27] LABS: Absolute Lymphocyte Count 2.76 X10^3/uL (0.83-4.51); Absolute Neutrophil Count 10.5 X10^3/uL (2.0-7.7); Basophil# 0.07 X10^3/uL; Basophil% 0.5 % (0-1); Eosinophil# 0.39 X10^3/uL; Eosinophils% 2.7 % (0-5); Hematocrit 45.4 % (37-47); Hemoglobin 14.8 g/dL (12.0-15.0); Lymphocyte # 2.76 X10^3/ul (0.83-4.51); Lymphocyte % 18.8 % (19-41); Mean Corp Hgb Conc 32.6 g/dL (32-36); Mean Corpuscular Hgb 29.6 pg (27.0-32.0); Mean Corpuscular Volume 90.8 fL (81-99); Mean Platelet Vol. 9.4 fl (6.2-12.0); Monocyte# 0.79 X10^3/uL; Monocyte% 5.4 % (0-10); NRBC Flagged by Analyzer 0 % (0-5); Neutrophil # 10.54 X10^3/uL (2.7-7.7); Neutrophil % 71.8 % (47-70); Platelet Count 635 K/mm3 (150-450); RBC Distribution Width CV 14.2 % (11.6-14.6); RBC Distribution Width SD 46.4 fl (35.1-43.9); White Blood Count 14.7 K/mm3 (4.4-11.0)
[2023-07-19 16:11] LABS: ALB/GLOB Ratio 0.9 RATIO (0.9-2.4); AST(SGOT) 14 U/L (15-37); Alanine Aminotransfer ALT/SGPT 25 U/L (13-56); Albumin, Serum 3.9 g/dL (3.2-5.0); Alkaline Phosphatase 85 U/L (45-117); Anion Gap 10 (5-15); BUN 27 mg/dL (7-18); BUN/Creat Ratio 29.8 RATIO (10-20); Chloride 101 mmol/L (98-107); EST Glomerular Filtration Rate 72 mL/min (>60); Est Glom Filt Rate - Afr Amer 87 mL/min (>60); Globulin 4.3 g/dL (2.2-4.2); Glucose 184 mg/dL (74-106); Magnesium 1.9 mg/dL (1.6-2.6); Protein, Total 8.2 g/dL (6.4-8.2); Sodium Level 133 mmol/L (136-145)
== END | disposition home or self-care (01) ==
PROVIDERS: PCP Internal Medicine; Visit Provider Internal Medicine
DX: E11.65 Type 2 diabetes mellitus with hyperglycemia (principal)
CPT/HCPCS: 36415; 80053; 83735; 85025

== ENCOUNTER → 2023-12-12 | Outpatient (CLI) | payer MEDICAID, SELFPAY ==
--- NOTE | 2023-12-12 08:58 | ADUL_ITS ---
Reason For Study: S/P left EIA, FISHER HOOP NET, SFA atherectomy/angioplasty Lt EIA and SFA stent Left Velocities EIA distal, mid stent, 143.1 cm/sec. FISHER HOOP NET prox, distal stent, 309.6 cm/sec. FISH[employer] HOOP NET mid, distal to stent, 183.9 cm/sec. SFA origin, 26.4 cm/sec. SFA prox, 98.4 cm/sec. SFA prox-distal is occluded. Stent noted. Branch noted coming off of SFA prox, 41.6 cm/sec. Profunda Femoral Artery = 126.7 cm./sec. Popliteal Artery, proximal, = 0 cm./sec. Popliteal Artery, mid = 204.5 cm./sec. Popliteal Artery, distal = 20 cm./sec. Post. Tibial Artery, prox = 11.8 cm./sec. Post Tibial Artery, mid = 10.2 cm./sec. Post Tibial Artery, dist. = 7.4 cm./sec. Peroneal Artery, prox = 0 cm./sec. Peroneal Artery, mid = 6.3 cm./sec. Peroneal Artery,dist. = 0 cm./sec. Ant.Tibial Artery, prox = 9.8 cm./sec. Ant Tibial Artery, mid = 9.8 cm./sec. Ant. Tibial Artery, distal = 9.8 cm./sec. Procedure Exam performed in department. Preliminary report given to Tasha PENDLETON. /US Art Duplex Unilat Lower Ext Interpretation Summary Left distal external iliac/proximal common femoral stent with stenosis >50%. Left superficial femoral artery patent at origin, occluded proximal and distal including prior stent. Popliteal reconstitution. Ordering Physician: Kassy Lauren Referring Physician: Zo Bell Performed By: Emperatriz Ray RVT
--- NOTE | 2023-12-12 08:58 | ART_ITS ---
Reason For Study: S/P left EIA, MANAGER NEWS, SFA atherectomy/angioplasty Lt EIA and SFA stent Procedure A bilateral lower extremity continuous wave Doppler with analog waveform analysis and ankle brachial indexes. Left Segmental Pressures Left brachial= 147mmHg. Left posterior tibial artery = 94mmHg. Left dorsalis pedis artery = 112mmHg. Left digit = 130 mmHg. The left dorsalis pedis waveforms are monophasic. The left posterior tibial artery waveforms are monophasic. Right Segmental Pressures Right brachial= 143mmHg. Right posterior tibial artery = 96mmHg. Right dorsalis pedis artery = 98mmHg. Right digit = 102 mmHg. The right dorsalis pedis waveforms are monophasic. The right posterior tibial artery waveforms are monophasic. Indices The right ankle brachial index by the dorsalis pedis is 0.67. The right ankle brachial index by the posterior tibial artery is 0.65. The right digital-brachial index is 0.69. The left ankle brachial index by the dorsalis pedis is 0.76. The left ankle brachial index by the posterior tibial artery is 0.64. The left digital-brachial index is 0.88. VL/Ankle Brachial Index Interpretation Summary Right MARTA 0.67, moderate arterial insufficiency. Doppler/PVR waveforms of the r ight ankle moderately diminished at rest. Left MARTA 0.76, moderate arterial insufficiency. Doppler/PVR waveforms of the le ft ankle moderately diminished at rest. Ordering Physician: Kassy Lauren Referring Physician: Zo Bell Performed By: Emperatriz Ray RVT
== END | disposition home or self-care (01) ==
LOC: CVS 08:55
PROVIDERS: PCP Internal Medicine; Referring Provider Physician Assistant; Visit Provider Physician Assistant
DX: I73.9 Peripheral vascular disease, unspecified (principal); Z48.812 Encounter for surgical aftercare following surgery on the circulatory system
CPT/HCPCS: 93922; 93926

== ENCOUNTER → 2023-12-28 | Outpatient (CLI) | payer MEDICAID, SELFPAY ==
--- NOTE | 2023-12-28 09:55 | VDLE_ITS ---
Reason For Study: PAIN RIGHT LEFT GSV is normal. GSV is normal. CFV is compressible, spontaneous, phasic, CFV is compressible, spontaneous, phasic, competent and demonstrates normal competent, and demonstrates normal augmentation. augmentation. FV is compressible, spontaneous, phasic, FV is compressible, spontaneous, phasic, competent and demonstrates normal competent and demonstrates normal augmentation. augmentation. POP V is compressible, spontaneous, phasic, T/P Trunk is compressible. competent and demonstrates normal PTV is compressible. augmentation. LT PerV is compressible. T/P Trunk is compressible. POP V is compressible & demonstrates PTV is compressible. roulleaux flow. RT PerV is compressible. Procedure This is a venous duplex using B-mode, color flow and spectral Doppler. Exam performed in department. A preliminary report was called and/or faxed to [facility] @ 10:25 am. VL/Venous Duplex US - Neal Extrem Interpretation Summary Deep veins of the bilateral lower extremities are patent and compressible segme ntally. There is no evidence of bilateral lower extremity deep vein thrombosis. The bilateral great saphenous veins appear patent and compressible segmentally. Diminished flow noted in left popliteal vein Ordering Physician: Kassy Lauren Referring Physician: Zo Bell Performed By: Michelle Wang, KIKO, RVT
== END | disposition home or self-care (01) ==
LOC: CVS 09:54
PROVIDERS: PCP Internal Medicine; Referring Provider Physician Assistant; Visit Provider Physician Assistant
DX: M79.89 Other specified soft tissue disorders (principal); M79.606 Pain in leg, unspecified
CPT/HCPCS: 93970

== ENCOUNTER 2024-01-04 10:19 | Day surgery (SDC) | payer MEDICAID, SELFPAY ==
[2024-01-03 14:50] VITALS: BMI 29.2
[2024-01-04 11:33] LABS: Hematocrit 45.6 % (37-47); Hemoglobin 14.8 g/dL (12.0-15.0); Mean Corp Hgb Conc 32.5 g/dL (32-36); Mean Corpuscular Hgb 28.5 pg (27.0-32.0); Mean Corpuscular Volume 87.9 fL (81-99); Mean Platelet Vol. 9.5 fl (6.2-12.0); Platelet Count 587 K/mm3 (150-450); RBC Distribution Width CV 13.9 % (11.6-14.6); RBC Distribution Width SD 44.5 fl (35.1-43.9); Red Blood Count 5.19 M/mm3 (4.2-5.4); White Blood Count 13.5 K/mm3 (4.4-11.0)
[2024-01-04 11:44] LABS: Anion Gap 8 (5-15); BUN 12 mg/dL (7-18); BUN/Creat Ratio 15.3 RATIO (10-20); Calcium,Total 9.2 mg/dL (8.5-10.1); Chloride 103 mmol/L (98-107); Creatinine, Serum 0.78 mg/dL (0.55-1.02); EST Glomerular Filtration Rate 84 mL/min (>60); Est Glom Filt Rate - Afr Amer 102 mL/min (>60); Estimated Creatinine Clearance 117.08 ml/min; Glucose 289 mg/dL (74-106); Potassium 3.8 mmol/L (3.5-5.1); Sodium Level 135 mmol/L (136-145)
[2024-01-04 11:48] LABS: Internal QC Validated? YES +Cl - CLEAR BKGD; Pregnancy, Serum, hCG Quali. NEGATIVE Negative
--- NOTE | 2024-01-04 14:10 | OP.PCM_ITS ---
Report of Operation Date of Procedure: 01/04/24 Pre-Operative Diagnosis: atherosclerosis with claudication, left lower extremity Post-Operative Diagnosis: same Surgery/Procedure Performed:: aortogram, left lower extremity angiogram IVUS left SFA, common femoral, external iliac, common iliac angioplasty/stent left common iliac, external iliac mechanical thrombectomy, left external iliac/common femoral Surgeon: Johny Avery Type of Anesthesia: Local and Sedation,Conscious Estimated Blood Loss (mL): 5 Description of Procedure: HPI: Patient is a 43-year-old female with extensive peripheral vascular disease and prior multilevel interventions. She has had a previous left femoral endarterectomy and stenting of the common and external iliac arteries down into the proximal common femoral artery patch. She also has undergone endovascular treatment of left SFA popliteal occlusion with atherectomy and DCB proximally and atherectomy and stent distally. She had return of her left foot claudication and discoloration approximately 1 month prior to her routine surveillance duplex. The surveillance duplex revealed occlusion of the SFA popliteal segment as well as recurrent in-stent restenosis of the external iliac stent. She is taken now for angiogram with possible intervention. Description of procedure: Upon obtaining informed consent and verification. [facility] procedure site patient was taken to the cath. She was positioned prepped and draped in usual sterile fashion. Timeouts performed consultation ministered Versed and fentanyl. Skin overlying the right common femoral artery was then anesthetized 1% lidocaine the vessel accessed with a micropuncture needle and wire under ultrasound guidance. Through this a hand-injection iliofemoral angiogram was performed revealing satisfactory positioning no extravasation or dissection. Through the micropuncture sheath a [employer] wire was advanced into the abdominal aorta and the micropuncture sheath exchanged for a 5 Finnish sheath. Through the 5 Finnish sheath and Omni Flush catheter advanced into the abdominal aorta and digital traction aortogram pelvic angiogram was performed. This revealed patent normal caliber aorta with no significant atherosclerosis or stenosis. The left common and external iliac stents were patent with no significant stenosis in the common iliac proximally though there was stenosis in multiple segments of the distal common and throughout the external iliac artery with some segments greater than 50%. We then navigated into the contralateral iliac system with the Omni Flush catheter and a glide advantage wire advancing our catheter into the distal external iliac artery. From this position hand- injection subtraction angiography was performed which revealed patent common femoral artery patch with large caliber profunda with no significant stenosis. There is approximately 4 cm of small caliber lumen of the superficial femoral artery with delayed contrast transit prior to total occlusion with reconstitution of the behind the knee popliteal artery via collaterals from the profunda. The below the knee popliteal artery and its trifurcation were widely patent with no significant atherosclerosis or stenosis. The patient was then heparinized allowed to circulate for 3 minutes and the glide advantage wire advanced in the Omni Flush catheter and short 5 Finnish sheath exchanged for a 7 Finnish destination sheath advanced over the bifurcation and positioned in the mid common iliac artery. An angled quick cross catheter was then advanced over the wire and the glide advantage exchanged for a command 14 wire which was then positioned in the proximal superficial femoral artery. Catheter was then withdrawn and then intravascular ultrasound catheter was advanced over the wire and recorded pullback performed of the left superficial femoral artery, common femoral artery, external iliac artery, common iliac artery. This confirmed intimal hyperplasia appearing in-stent stenosis throughout the external iliac artery and the distal half of the common iliac artery with some segments greater than 50%. Previously the iliac stent restenosis had responded well to angioplasty so a WebVet angio sculpt a 7 x 40 balloon was advanced over the wire and inflated for multiple inflations across the length of the external iliac artery and distal common iliac artery. Repeat angiography revealed satisfactory stenosis response with minimal in-stent stenosis remaining. Intravascular ultrasound probe was then readvanced and recorded pullback performed of the treated segment which revealed less than 10% residual stenosis within the stent lumen throughout the treated segment. This did however reveal particulate debris encasing the distal to the intervention site within the common femoral artery. This appeared to be debris from the distal portion of the stent that had dislodged during balloon angioplasty encircling the wire. It was felt that this was significant risk for embolization down the profunda branches which is providing the's sole perfusion to her left lower extremity. The WebVet aspiration catheter was then brought in field prep for manufactures instructions. It was advanced over the wire and engaged for multiple passes within the common femoral, external iliac, distal common iliac arteries. After the initial passes there was continued residual debris however after the final pass there was no further debris visualized on angiography. To avoid risk of possibly dislodging any other debris we did not be advance the ultrasound probe at this time as it appeared that there was significant friable mural debris in the treated segment. Given this appearance covered stent was selected as a treatment option to avoid any further embolic events and hopefully help prevent any further in-stent restenosis issues. First a [place] Viabahn self- expanding covered stent 6 x 100 was brought in field and advanced the position at the distal extent of the treatment zone aligning with the distal edge of the previously placed stent into the mid common femoral artery. This was then deployed and the delivery system withdrawn a second [place] Viabahn 8 x 75 was brought on the field advanced position with satisfactory overlap distally onto the first Viabahn with the proximal end just distal to the sheath tip. This was then deployed and the delivery system withdrawn. Completion angiography revealed satisfactory stent positioning no extravasation dissection, brisk contrast transit, and no further bleeding luminal irregularities. Intravascular sound probe was then advanced and recorded pullback performed of the SFA, left common iliac, left external iliac, left common iliac revealed satisfactory stent positioning with no continued luminal debris. Wires and catheters were withdrawn and the long 7 Finnish sheath exchanged for short 7 Finnish sheath followed by a minx closure device and 5 minutes of manual pressure. Patient was taken recovery room for bedrest prior to discharge home.
[2024-01-04 14:47] LABS: ACT Activated Clotting Time 232 sec (74-137)
[2024-01-04 14:47] LABS: ACT Activated Clotting Time 226 sec (74-137)
== END 2024-01-04 16:20 | disposition home or self-care (01) ==
PROVIDERS: PCP Internal Medicine; Referring Provider Surgery Trauma Surgery; Visit Provider Surgery Trauma Surgery
DX: I70.212 Atherosclerosis of native arteries of extremities with intermittent claudication, left leg (principal); E11.40 Type 2 diabetes mellitus with diabetic neuropathy, unspecified; Z79.4 Long term (current) use of insulin; T82.856A Stenosis of peripheral vascular stent, initial encounter; Y71.2 Prosthetic and other implants, materials and accessory cardiovascular devices associated with adverse incidents; I10 Essential (primary) hypertension; E78.00 Pure hypercholesterolemia, unspecified; Z79.84 Long term (current) use of oral hypoglycemic drugs; Z79.82 Long term (current) use of aspirin; Z79.899 Other long term (current) drug therapy; Z87.891 Personal history of nicotine dependence
CPT/HCPCS: 36200; 36245; 37184; 37221; 37223; 37252; 37253; 75625; 75710; 76937; 80048; 84703; 85027; 85347; 99152; 99153; C1725; C1753; C1760; C1769; C1874; C1887; C1894; J7040; Q9967; C1757; J2405

== ENCOUNTER → 2024-01-06 | Outpatient (CLI) | payer MEDICAID, SELFPAY ==
--- NOTE | 2024-01-06 13:21 | VDLE_ITS ---
Reason For Study: Left leg swelling RIGHT LEFT CFV is compressible, spontaneous, phasic, GSV is normal. competent and demonstrates normal CFV is compressible, spontaneous, phasic, augmentation. competent, and demonstrates normal Procedure augmentation. This is a venous duplex using B-mode, color FV is compressible, spontaneous, phasic, flow and spectral Doppler. competent and demonstrates normal Exam performed in department. augmentation. A preliminary report was called and/or faxed POP V is compressible, spontaneous, phasic, to Kassy HALEY. competent and demonstrates normal augmentation. T/P Trunk is compressible. PTV is compressible. LT PerV is compressible. Incidental Finding SFA prox, 74.3 cm/sec. SFA mid-distal, stent, No Flow Leena, 28.1 cm/sec. VL/Venous Duplex US, Unilateral Interpretation Summary Deep veins of the left lower extremity are patent and compressible segmentally. There is no evidence of left lower extremity deep vein thrombosis. The left great saphenous vein quoc ears patent and compressible segmentally. Ordering Physician: Kassy Lauren Referring Physician: Zo Bell Performed By: Emperatriz Ray RVT
== END | disposition home or self-care (01) ==
LOC: CVS 13:20
PROVIDERS: PCP Internal Medicine; Referring Provider Physician Assistant; Visit Provider Physician Assistant
DX: I87.302 Chronic venous hypertension (idiopathic) without complications of left lower extremity (principal)
CPT/HCPCS: 93971

== ENCOUNTER → 2024-02-10 | Outpatient (CLI) | payer MEDICAID, SELFPAY ==
--- NOTE | 2024-02-10 13:13 | ART_ITS ---
Reason For Study: S/P Lt JEFF/EIA angioplasty/stent, mechanical thrombectomy Lt EIA Procedure A bilateral lower extremity continuous wave Doppler with analog waveform analysis and ankle brachial indexes. Left Segmental Pressures Left brachial= 138mmHg. Left posterior tibial artery = 94mmHg. Left dorsalis pedis artery = 93mmHg. Left digit = 105 mmHg. The left dorsalis pedis waveforms are monophasic. The left posterior tibial artery waveforms are monophasic. Right Segmental Pressures Right brachial= 130mmHg. Right posterior tibial artery = 84mmHg. Right dorsalis pedis artery = 90mmHg. Right digit = 85 mmHg. The right dorsalis pedis waveforms are monophasic. The right posterior tibial artery waveforms are monophasic. Indices The right ankle brachial index by the dorsalis pedis is 0.65. The right ankle brachial index by the posterior tibial artery is 0.61. The right digital-brachial index is 0.62. The left ankle brachial index by the dorsalis pedis is 0.67. The left ankle brachial index by the posterior tibial artery is 0.68. The left digital-brachial index is 0.78. VL/Ankle Brachial Index Interpretation Summary Right MARTA 0.65, moderate arterial insufficiency. Doppler/PVR waveforms of the r ight ankle moderately diminished at rest. Left MARTA 0.68, moderate arterial insufficieny. Doppler/PVR waveforms of the lef t ankle moderately diminished at rest. Ordering Physician: Kassy Lauren Referring Physician: Zo Bell Performed By: Emperatriz Ray RVT
--- NOTE | 2024-02-10 13:13 | ADUL_ITS ---
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 [employer]ODUCTION TEAM MEMBER prox, distal stent, 122.7 cm/sec. [employer]ODUCTION TEAM MEMBER mid, distal to stent, 133.7 cm/sec. [employer] MEMBER distal, 85.7 cm/sec.. SFA prox, 59.1 cm/sec. SFA prox-distal is occluded. Stent noted. Branch noted coming off of SFA prox, 100.2 cm/sec. Profunda Femoral Artery = 134.4 cm./sec. Popliteal Artery, proximal, = 0 cm./sec. Popliteal Artery, mid = 21.6 cm./sec. Popliteal Artery, distal = 10 cm./sec. Post. Tibial Artery, prox = 12.5 cm./sec. Post Tibial Artery, mid = 10 cm./sec. Post Tibial Artery, dist. = 9.6 cm./sec. Peroneal Artery, prox = 6.5 cm./sec. Peroneal Artery, mid = 5.9 cm./sec. Peroneal Artery,dist. = 5.9 cm./sec. Ant.Tibial Artery, prox = 13.4 cm./sec. Ant Tibial Artery, mid = 8.7 cm./sec. Ant. Tibial Artery, distal = 9.3 cm./sec. Procedure Exam performed in department. /US Art Duplex Unilat Lower Ext Interpretation Summary Left distal external iliac artery and common femoral artery patent with normal velocities and no evidence of stenosis; improved from prior study. Known left SFA occlusion Ordering Physician: Kassy Lauren Referring Physician: Zo Bell Performed By: Emperatriz Ray RVT
== END | disposition home or self-care (01) ==
PROVIDERS: PCP Internal Medicine; Referring Provider Physician Assistant; Visit Provider Physician Assistant
DX: I73.9 Peripheral vascular disease, unspecified (principal); Z48.812 Encounter for surgical aftercare following surgery on the circulatory system
CPT/HCPCS: 93922; 93926

== ENCOUNTER → 2024-03-07 | Outpatient (CLI) | payer MEDICAID, SELFPAY ==
--- NOTE | 2024-03-07 15:03 | VDLE_ITS ---
Reason For Study: BLE Swelling RIGHT LEFT GSV is normal. GSV is normal. CFV is compressible, spontaneous, phasic, CFV is compressible, spontaneous, phasic, competent and demonstrates normal competent, and demonstrates normal augmentation. augmentation. FV is compressible, spontaneous, phasic, FV is compressible, spontaneous, phasic, competent and demonstrates normal competent and demonstrates normal augmentation. augmentation. POP V is compressible, spontaneous, phasic, POP V is compressible, spontaneous, phasic, competent and demonstrates normal competent and demonstrates normal augmentation. augmentation. T/P Trunk is compressible. T/P Trunk is compressible. PTV is compressible. PTV is compressible. RT PerV is compressible. LT PerV is compressible. Procedure This is a venous duplex using B-mode, color flow and spectral Doppler. Exam performed in department. The exam was diagnostic. A preliminary report was called and/or faxed to Tasha Montero RN at [facility]. VL/Venous Duplex US - Neal Extrem Interpretation Summary Deep veins of the bilateral lower extremities are patent and compressible segme ntally. There is no evidence of bilateral lower extremity deep vein thrombosis. The bilateral great saphenous veins appear patent and compressible segmentally. Ordering Physician: Kassy Lauren Referring Physician: Zo Bell Performed By: Cooper Mclaughlin RVT
== END | disposition home or self-care (01) ==
LOC: CVS 15:02
PROVIDERS: PCP Internal Medicine; Referring Provider Physician Assistant; Visit Provider Physician Assistant
DX: M79.89 Other specified soft tissue disorders (principal)
CPT/HCPCS: 93970

== ENCOUNTER → 2024-07-05 | Outpatient (CLI) | payer MEDICAID, SELFPAY ==
[2024-07-05 16:01] LABS: AST(SGOT) 19 U/L (15-37); Alanine Aminotransfer ALT/SGPT 26 U/L (13-56); Albumin, Serum 3.8 g/dL (3.2-5.0); Alkaline Phosphatase 84 U/L (45-117); Bilirubin, Direct 0.18 mg/dL (0.00-0.30); Cholesterol 208 mg/dL (200); Globulin 4.3 g/dL (2.2-4.2); High Density Lipoprotein 46 mg/dL; Protein, Total 8.1 g/dL (6.4-8.2); T4 Free Direct 1.27 ng/dL (0.76-1.46); Thyroid Stim Hormone (TSH) 0.739 uIU/mL (0.358-3.740); Triglycerides 317 mg/dL; Very Low Density Lipoprotein 63 mg/dL (5-40)
[2024-07-05 17:10] LABS: Vitamin D,25 Hydroxy 35.5 ng/mL
[2024-07-08 13:07] LABS: Adrenocorticotropic Hormone 13.6 pg/mL (7.2-63.3)
== END | disposition home or self-care (01) ==
LOC: BIMLAB 14:09
PROVIDERS: Nurse Practitioner Family; PCP Internal Medicine; Referring Provider Internal Medicine; Visit Provider Internal Medicine
DX: E11.29 Type 2 diabetes mellitus with other diabetic kidney complication (principal); Z79.4 Long term (current) use of insulin; R80.9 Proteinuria, unspecified; E78.2 Mixed hyperlipidemia; E55.9 Vitamin D deficiency, unspecified; R53.83 Other fatigue
CPT/HCPCS: 36415; 80061; 80076; 82024; 82306; 82533; 84439; 84443

== ENCOUNTER → 2024-08-23 | Outpatient (CLI) | payer MEDICAID, SELFPAY ==
--- NOTE | 2024-08-23 10:50 | ADUL_ITS ---
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 CORPORATE SECRETARY prox, distal stent, 129.3 cm/sec. CORPORATE SECRETARY mid, distal to stent, 109.5 cm/sec. SFA origin-distal is occluded. Stent noted. Branch noted coming off of Profunda A origin, 202.6 cm/sec. Profunda Femoral Artery = 124.9 cm./sec. Popliteal Artery, proximal, = 0 cm./sec. Popliteal Artery, mid = 30.9 cm./sec. Popliteal Artery, distal = 14.3 cm./sec. Post. Tibial Artery, prox = 14.3 cm./sec. Post Tibial Artery, mid = 12.7 cm./sec. Post Tibial Artery, dist. = 11.4 cm./sec. Peroneal Artery, prox = 9.5 cm./sec. Peroneal Artery, mid = 9.5 cm./sec. Peroneal Artery,dist. = 5.8 cm./sec. Ant.Tibial Artery, prox = 12.4 cm./sec. Ant Tibial Artery, mid = 11.1 cm./sec. Ant. Tibial Artery, distal = 16.5 cm./sec. Procedure This is a arterial duplex using B-mode, color flow and spectral Doppler. Exam performed in department. VL/US Art Duplex Unilat Lower Ext Interpretation Summary Left external iliac and common femoral stents patent with normal velocities and no evidence of stenosis. Known occlusion left superficial femoral artery stent with reconstitution of th e mid popliteal artery. Ordering Physician: Kassy Lauren Referring Physician: Zo Bell Performed By: Emperatriz Ray RVT
--- NOTE | 2024-08-23 10:50 | ART_ITS ---
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 Left Segmental Pressures Left brachial= 159mmHg. Left posterior tibial artery = 104mmHg. Left dorsalis pedis artery = 101mmHg. Left digit = 109 mmHg. The left dorsalis pedis waveforms are monophasic. The left posterior tibial artery waveforms are monophasic. Right Segmental Pressures Right brachial= 149mmHg. Right posterior tibial artery = 92mmHg. Right dorsalis pedis artery = 106mmHg. Right digit = 80 mmHg. The right dorsalis pedis waveforms are monophasic. The right posterior tibial artery waveforms are monophasic. Indices The right ankle brachial index by the dorsalis pedis is 0.67. The right ankle brachial index by the posterior tibial artery is 0.58. The right digital-brachial index is 0.50. The left ankle brachial index by the dorsalis pedis is 0.64. The left ankle brachial index by the posterior tibial artery is 0.65. The left digital-brachial index is 0.69. VL/Ankle Brachial Index Interpretation Summary Right MARTA 0.67, moderate arterial insufficiency. Doppler/PVR waveforms of the r ight ankle moderately diminished at rest. Left MARTA 0.65, moderate arterial insufficiency. Doppler/PVR waveforms of the le ft ankle moderately diminished at rest. Ordering Physician: Kassy Lauren Referring Physician: Zo Bell Performed By: Emperatriz Ray RVT
== END | disposition home or self-care (01) ==
LOC: CVS 10:49
PROVIDERS: PCP Internal Medicine; Referring Provider Physician Assistant; Visit Provider Physician Assistant
DX: Z48.812 Encounter for surgical aftercare following surgery on the circulatory system (principal)
CPT/HCPCS: 93922; 93926

== ENCOUNTER → 2025-03-01 | Outpatient (CLI) | payer MEDICAID, SELFPAY | END | disposition home or self-care (01) | LOC: CVS 10:01 | PROVIDERS: PCP Internal Medicine; Referring Provider Physician Assistant; Visit Provider Physician Assistant | DX: I73.9 Peripheral vascular disease, unspecified (principal); Z48.812 Encounter for surgical aftercare following surgery on the circulatory system | CPT/HCPCS: 93922; 93926 ==